=== PATIENT | female | born 1985 | race Caucasian/White ===

== ENCOUNTER 2024-09-30 12:00 | Outpatient (CLI) | payer OTHER | END 2024-09-30 13:09 | disposition home or self-care (01) | LOC: NST 12:00 | PROVIDERS: ATTEND Obstetrics & Gynecology Maternal & Fetal Medicine | DX: Z34.83 Encounter for supervision of other normal pregnancy, third trimester (principal) ==

== ENCOUNTER 2024-10-07 13:09 | Outpatient (CLI) | payer OTHER | END 2024-10-07 14:16 | disposition home or self-care (01) | LOC: NST 13:09 | PROVIDERS: ATTEND Obstetrics & Gynecology Gynecology | DX: Z34.83 Encounter for supervision of other normal pregnancy, third trimester (principal) ==

== ENCOUNTER → 2024-10-22 | Outpatient (CLI) | payer OTHER | END | disposition home or self-care (01) | LOC: NST 13:08 | PROVIDERS: ATTEND Obstetrics & Gynecology Gynecology | DX: Z3A.32 32 weeks gestation of pregnancy (principal) ==

== ENCOUNTER 2024-11-04 13:20 | Outpatient (CLI) | payer OTHER ==
[2024-11-04 13:40] VITALS: BP 135/82
== END 2024-11-04 14:47 | disposition home or self-care (01) ==
LOC: NST 13:20
PROVIDERS: ATTEND Obstetrics & Gynecology Gynecology
DX: Z34.83 Encounter for supervision of other normal pregnancy, third trimester (principal)

== ENCOUNTER 2024-11-16 15:56 | Outpatient (CLI) | payer OTHER ==
[2024-11-17] MEDS ORDERED: PRENATAL TABLE1 EAC1 PO (13:05)
== END 2024-11-16 16:43 | disposition home or self-care (01) ==
LOC: NST 15:56
PROVIDERS: ATTEND Obstetrics & Gynecology Gynecology
DX: Z3A.35 35 weeks gestation of pregnancy (principal)

== ENCOUNTER 2024-11-17 12:42 | Inpatient (IN) | payer OTHER ==
[~2024-11-17] VITALS: Ht 165.1 cm; Wt 2.3 kg
[2024-11-17 12:51] VITALS: BP 116/81
[2024-11-17] MEDS ORDERED: PRENATAL TABLE1 EAC1 PO (13:05)
[2024-11-17] MEDS ORDERED: BETAMETHASONE ACETATE,SOD PHOS 30 MG/5 ML ML IM ONE (13:30)
[2024-11-17] MEDS ORDERED: AMPICILLIN SODIUM 2,000 MG VIAL IV ONE (13:30)
[2024-11-17] MEDS ORDERED: CITRIC ACID/SODIUM CITRATE 30 ML BLIST.PACK PO NR (14:00)
[2024-11-17 14:13] LABS: HEMATOCRIT 33.5 % (36.0-45.00); HEMOGLOBIN 10.7 g/dL (12.0-15.00); MEAN CELL VOLUME 75.2 fL (80.00-100.00); MEAN CORPUSCULAR HEMOGLOBIN 23.9 pg (27.00-32.0); MEAN CORPUSCULAR HGB CONC 31.8 g/dl (32.0-36.0); PLATELET COUNT 189 K/uL (150-450); RED BLOOD COUNT 4.45 M/uL (4.00-6.00); RED CELL DISTRIBUTION WIDTH 17.2 % (11.5-14.5)
[2024-11-17 14:14] LABS: URINE APPEARANCE Clear; URINE BILIRRUBIN Negative (NEGATIVE); URINE BLOOD Large; URINE COLOR Yellow; URINE GLUCOSE Negative (NEGATIVE); URINE KETONE Trace (NEGATIVE); URINE LEUKOCYTE Negative; URINE NITRATE Negative; URINE PROTEIN Negative (NEGATIVE); URINE UROBILINOGEN 0.2 E.U./dl
[2024-11-17 14:19] LABS: URINE BACTERIA 47.7 uL (0.0-1933); URINE EPITHELIAL CELLS 21.3 uL (0.0-38.8)
[2024-11-17 14:27] LABS: INR < 0.93; PROTHROMBIN TIME 9.9 SECONDS (9.0-11.5)
[2024-11-17 14:45] LABS: ALBUMIN 2.7 gm/dL (3.4-5.0); BILIRUBIN TOTAL 0.44 mg/dL (0.3-1.2); CALCIUM 9.7 mg/dL (8.5-10.1); CREATININE SERUM 0.71 mg/dL (0.55-1.02); GFR 92.13; GLOBULINA 3.5 G/DL (2.4-3.5); POTASSIUM 3.99 mEq/L (3.5-5.1); TOTAL PROTEIN 6.2 gm/dL (6.4-8.2)
[2024-11-17 15:18] LABS: URINE CAST 0.14 uL (0.0-1.40)
[2024-11-17 15:41] VITALS: BP 136/80
[2024-11-17] MEDS ORDERED: AMPICILLIN SODIUM 1,000 MG VIAL IV SCH (17:00)
[2024-11-17] MEDS ORDERED: OXYTOCIN 1,000 ML IV SCH (20:00)
[2024-11-17] MEDS ORDERED: KETOROLAC TROMETHAMINE 30 MG VIAL IM ONE (20:00)
[2024-11-17 21:24] VITALS: BP 110/70
[2024-11-17 22:04] LABS: HEMATOCRIT 29.6 % (36.0-45.00); HEMOGLOBIN 9.6 g/dL (12.0-15.00); MEAN CELL VOLUME 74.4 fL (80.00-100.00); MEAN CORPUSCULAR HGB CONC 32.3 g/dl (32.0-36.0); PLATELET COUNT 176 K/uL (150-450); RED BLOOD COUNT 3.97 M/uL (4.00-6.00); RED CELL DISTRIBUTION WIDTH 17.3 % (11.5-14.5)
[2024-11-18] MEDS ORDERED: KETOROLAC TROMETHAMINE 10 MG TABLET PO SCH
[2024-11-18] MEDS ORDERED: MORPHINE SULFATE 4 MG/ML VIAL IV PRN (00:15)
[2024-11-18 00:32] VITALS: BP 116/73
[2024-11-18] MEDS ORDERED: SIMETHICONE 125 MG CAPSULE PO SCH (01:00)
[2024-11-18] MEDS ORDERED: CEFOXITIN SODIUM 2,000 MG VIAL IV SCH (01:00)
[2024-11-18 06:52] LABS: HEMATOCRIT 26.4 % (36.0-45.00); MEAN CELL VOLUME 73.3 fL (80.00-100.00); MEAN CORPUSCULAR HGB CONC 32.9 g/dl (32.0-36.0); PLATELET COUNT 181 K/uL (150-450); RED BLOOD COUNT 3.61 M/uL (4.00-6.00); RED CELL DISTRIBUTION WIDTH 17.2 % (11.5-14.5)
[2024-11-18 06:53] LABS: HEMOGLOBIN 8.7 g/dL (12.0-15.00)
[2024-11-18 08:00] VITALS: BP 101/68
[2024-11-18] MEDS ORDERED: MORPHINE SULFATE 4 MG/ML CARTRIDGE IV PRN (08:15)
[2024-11-18] MEDS ORDERED: OxyCODONE HCL/APAP UD (PERCOCET) PO SCH (09:00)
[2024-11-18] MEDS ORDERED: PNV,CALCIUM 72/IRON/FOLIC ACID 1 TAB TABLET PO SCH (12:00)
[2024-11-18] MEDS ORDERED: OXYTOCIN 10 UNITS/ML VIAL IV ONE (14:45)
[2024-11-18] MEDS ORDERED: ERYTHROMYCIN BASE OPHT 1GM EACH TUBE OP ONE (14:45)
[2024-11-18 16:00] VITALS: BP 100/68
[2024-11-18] MEDS ORDERED: FERROUS SULFATE 325 MG TABLET.EC PO SCH (16:00)
[2024-11-19 00:44] VITALS: BP 100/65
[2024-11-19 05:23] VITALS: BP 96/70
[2024-11-19 08:19] VITALS: BP 100/65
[2024-11-19 13:33] VITALS: BP 115/62
[2024-11-19 16:07] VITALS: BP 100/68
[2024-11-19] MEDS ORDERED: DIPHENHYDRAMINE HCL 25 MG CAPSULE PO PRN (17:15)
[2024-11-20 01:11] VITALS: BP 106/72
[2024-11-20] MEDS ORDERED: FERROUS SULFAT325 M1 PO (07:28)
[2024-11-20] MEDS ORDERED: KETO10TA2 PO (07:28)
[2024-11-20] MEDS ORDERED: OXYC1TAB9 PO (07:28)
[2024-11-20 08:34] VITALS: BP 121/81
== END 2024-11-20 11:49 | disposition home or self-care (01) | DRG 788 ==
LOC: O/R 12:42 → LDR 12:42 → O/R 18:44 → OB/GYN 19:41
PROVIDERS: ADMIT Obstetrics & Gynecology Maternal & Fetal Medicine; ATTEND Obstetrics & Gynecology Maternal & Fetal Medicine
PROC: 4A1HXCZ Monitoring of Products of Conception, Cardiac Rate, External Approach (ICD-10-PCS; 2024-11-17)
PROC: 10D00Z1 Extraction of Products of Conception, Low, Open Approach (ICD-10-PCS; principal; 2024-11-17 19:00)
DX: O60.14X2 Preterm labor third trimester with preterm delivery third trimester, fetus 2 (principal); O30.093 Twin pregnancy, unable to determine number of placenta and number of amniotic sacs, third trimester; O32.8XX1 Maternal care for other malpresentation of fetus, fetus 1; Z3A.35 35 weeks gestation of pregnancy; Z37.2 Twins, both liveborn